=== PATIENT | female | born 1995 | race Caucasian/White ===

== ENCOUNTER → 2021-10-27 | Day surgery (SDC) | payer OTHER ==
[~2021-10-27] VITALS: Ht 162.6 cm; Wt 49.9 kg
[~2021-10-27] MED LIST: CLONAZEPAM 1 MG1 M1 PO; IBU600 MG PO; NORCO5 PO
--- NOTE | ~2021-10-27 | O ---
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 OPERATIVE PROCEDURE: LEEP. SURGEON: Deloris Gama DO ANESTHESIA: General. INTRAVENOUS FLUIDS: 500 mL. ESTIMATED BLOOD LOSS: 2 mL. COMPLICATIONS: None. PATHOLOGY: 1. Ectocervical biopsy. 2. Endocervical biopsy. DESCRIPTION OF PROCEDURE: The patient was taken to the operating room where general anesthesia was administered and found to be adequate. She was then prepped and draped in normal sterile fashion in dorsal lithotomy position. A weighted speculum was placed in the patient's vagina. The anterior aspect of the cervix was identified and grasped with a single tooth tenaculum. A dilute solution of acetic acid was then placed on the patient's cervix followed by Lugol solution. Lugol solution was then decolorized by another application of acetic acid. A circumferential lesion was visualized. An excision of the ectocervix was then performed using the large loop electrocautery, the endocervical biopsy was then taken with a small electrocautery loop. Once both specimens were removed, they were sent for pathology individually. The bed of the cervix was then cauterized with ball cautery and excellent hemostasis was noted. The tenaculum was removed from the patient's cervix. There was a small amount of bleeding noted at the tenaculum site; therefore, cautery was used at that site and hemostasis was achieved. All instruments were then removed from the patient's vagina. The patient tolerated the procedure well. [address] [address] OPERATIVE REPORT Name: SARIKA ULLOA Room #: [facility]..#: [id number] Admission: 10/27/21 Attend Phys: Deloris Gama DO Discharge: Date of : 89 Report #: [id number] instrument counts were reported as correct and the patient was taken to the recovery room in stable condition. By: [id number] Deloris Gama DO /nt
[2021-10-27 07:15] VITALS: BP 136/62
[2021-10-27 08:28] VITALS: BP 136/62
== END | disposition home or self-care (01) ==
LOC: OR 06:08
PROVIDERS: ATTEND Obstetrics & Gynecology
DX: N87.1 Moderate cervical dysplasia (principal); F31.9 Bipolar disorder, unspecified; F41.9 Anxiety disorder, unspecified; F17.210 Nicotine dependence, cigarettes, uncomplicated; Z98.890 Other specified postprocedural states; Z79.899 Other long term (current) drug therapy; Z20.822 Contact with and (suspected) exposure to COVID-19; Z90.49 Acquired absence of other specified parts of digestive tract
CPT/HCPCS: 50010; 50101; 50123; 50386; 51732; 62110; 62900; 70005; Y7506

== ENCOUNTER 2022-01-01 09:29 | Emergency (ER) | payer OTHER ==
[~2022-01-01] VITALS: Ht 162.6 cm; Wt 54.4 kg
[2022-01-01] MEDS ORDERED: QUETIAPINE FUMA25 MG PO (09:36)
[2022-01-01 09:43] LABS: ABSOLUTE NEUTROPHILS 3.8 thou/uL (1.4-8.2); BASOPHILS 0.3 % (0.0-2.0); EOSINOPHILS 2.1 % (0.0-3.0); HEMATOCRIT 38.8 % (37.0-47.0); HEMOGLOBIN 13.3 gm/dL (12.0-15.0); LYMPHOCYTES 31.9 % (24.0-44.0); MCH 32.7 pg (26.0-34.0); MCHC 34.4 g/dL (28.0-37.0); MCV 95.1 fL (80.0-100.0); MONOCYTES 5.6 % (1.0-8.0); PLATELET COUNT 271 thou/uL (150-400); POLYS 60.1 % (36.0-66.0); RBC 4.07 mil/uL (4.20-5.00); RDW 12.3 % (10.5-14.5); WBC 6.3 thou/uL (4.0-11.0)
[2022-01-01 09:51] LABS: URINE BILIRUBIN NEGATIVE (Negative); URINE BLOOD NEGATIVE (Negative); URINE CLARITY CLEAR; URINE COLOR YELLOW; URINE GLUCOSE-RANDOM* NEGATIVE (Negative); URINE KETONES NEGATIVE (Negative); URINE LEUKOCYTES-REFLEX TRACE (Negative); URINE NITRITE-REFLEX NEGATIVE (Negative); URINE PROTEIN (DIPSTICK) NEGATIVE (Negative); URINE UROBILINOGEN 0.2 E.U./dl (0.2-1.0)
[2022-01-01 10:05] LABS: CALCIUM 9.1 mg/dL (8.5-10.1); CREATININE 0.8 mg/dL (0.6-1.0); POTASSIUM 4.1 mmol/L (3.5-5.1)
[2022-01-01 10:11] LABS: ALBUMIN 4.2 g/dL (3.4-5.0); TOTAL BILIRUBIN 0.4 mg/dL (0.2-1.0); TOTAL PROTEIN 7.5 g/dL (6.4-8.2)
[2022-01-01] MEDS ORDERED: NORCO5 PO (12:02)
[2022-01-01 12:10] VITALS: BP 109/72
== END 2022-01-01 12:10 | disposition home or self-care (01) ==
LOC: ER 09:29
PROVIDERS: Emergency Medicine
DX: R10.9 Unspecified abdominal pain (principal); R11.0 Nausea; Z87.442 Personal history of urinary calculi; Z90.49 Acquired absence of other specified parts of digestive tract; Z98.890 Other specified postprocedural states